=== PATIENT | female | born 1980 | race Hispanic/Latino ===

== ENCOUNTER 2017-12-04 09:39 | Emergency (ER) | payer OTHER, SELFPAY ==
[2017-12-04] MEDS ORDERED: ONDANSETRON 4 MG (ODT) TAB ONE (11:01)
--- NOTE | 2017-12-04 11:54 | EDPHYS ---
Physician Documentation [facility] Name: Jeanie Mancia Age: 37 yrs Sex: Female : 1980 Arrival Date: 12/04/2017 Time: 09:42 Bed 27 Private MD: None, None ED Physician Steffen Wilson HPI: 12/04 11:51 This 37 yrs old Female presents to ER via Ambulatory with complaints of gs Vomiting. 11:51 The patient presents to the emergency department with nausea, vomiting. The patient gs presents to the emergency department with vomiting, 2 times since the onset of symptoms. Onset: The symptoms/episode began/occurred today. Possible causes: unknown. The symptoms are aggravated by nothing. The symptoms are alleviated by nothing. Associated signs and symptoms: Pertinent negatives: abdominal pain, fever, GI bleeding. Severity of symptoms: At their worst the symptoms were moderate in the emergency department the symptoms have improved markedly. The patient has experienced similar episodes in the past, a few times. The patient has not recently seen a physician. 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 - Social history:: Smoking status: Patient/guardian denies using tobacco. - Ebola Screening: : No symptoms or risks identified at this time. ROS: 11:51 All other systems are negative. gs Exam: 11:51 Head/Face: Normocephalic, atraumatic. Eyes: Pupils equal round and reactive to light, gs extra-ocular motions intact. Lids and lashes normal. Conjunctiva and sclera are non-icteric and not injected. Cornea within normal limits. Periorbital areas with no swelling, redness, or edema. ENT: Nares patent. No nasal discharge, no septal abnormalities noted. Tympanic membranes are normal and external auditory canals are clear. Oropharynx with no redness, swelling, or masses, exudates, or evidence of obstruction, uvula midline. Mucous membranes moist. Neck: Trachea midline, no thyromegaly or masses palpated, and no cervical lymphadenopathy. Supple, full range of motion without nuchal rigidity, or vertebral point tenderness. No Meningismus. Chest/axilla: Normal chest wall appearance and motion. Nontender with no deformity. No lesions are appreciated. Cardiovascular: Regular rate and rhythm with a normal S1 and S2. No gallops, murmurs, or rubs. Normal PMI, no JVD. No pulse deficits. Respiratory: Lungs have equal breath sounds bilaterally, clear to auscultation and percussion. No rales, rhonchi or wheezes noted. No increased work of breathing, no retractions or nasal flaring. Abdomen/GI: Soft, non-tender, with normal bowel sounds. No distension or tympany. No guarding or rebound. No evidence of tenderness throughout. Back: No spinal tenderness. No costovertebral tenderness. Full range of motion. Skin: Warm, dry with normal turgor. Normal color with no rashes, no lesions, and no evidence of cellulitis. MS/ Extremity: Pulses equal, no cyanosis. Neurovascular intact. Full, normal range of motion. Neuro: Awake and alert, GCS 15, oriented to person, place, time, and situation. Cranial nerves II-XII grossly intact. Motor strength 5/5 in all extremities. Sensory grossly intact. Cerebellar exam normal. Normal gait. 11:51 Constitutional: The patient appears alert, awake. Vital Signs: 09:54 BP 136 / 73; Pulse 100; Resp 16 S; Temp 97.0(TE); Pulse Ox 99% on R/A; Weight 89.36 kg aa5 (R); Height 5 ft. 5 in. (165.10 cm) (R); Pain 0/10; 11:41 BP 135 / 67; Pulse 74; Resp 16; Pulse Ox 100% on R/A; aj 09:54 Body Mass Index 32.78 (89.36 kg, 165.10 cm) aa5 MDM: 10:28 Patient medically screened. 11:51 Differential diagnosis: Nonspecific abd pain, gastritis, gastroenteritis. Data reviewed: vital signs, nurses notes. Response to treatment: the patient's symptoms have markedly improved after treatment, patient is well hydrated. taking po no emesis. 12/04 11:53 Order name: Urine Dipstick--Ancillary (enter results) bd 12/04 10:29 Order name: Urine Test (obtain specimen); Complete Time: 11:01 12/04 11:53 Order name: Urine --Ancillary (enter results) bd 12/04 11:54 Order name: Urine --Ancillary EDMA 12/04 10:29 Order name: Urine Dipstick-Ancillary (obtain specimen); Complete Time: 11:01 Administered Medications: 11:01 Drug: Zofran 4 mg Route: PO; aj Point of Care Testing: Blood Glucose: 09:54 Blood Glucose: 149 mg/dL; aa5 Ranges: Critical Glucose Levels:Adult <50 mg/dl or >400 mg/dl <40 mg/dl or >180 mg/dl Disposition: 12/04/17 11:54 Discharged to Home. Impression: Vomiting. - Condition is Stable. - Discharge Instructions: Nausea and Vomiting. - Prescriptions for Zofran 4 mg Oral Tablet - take 1 tablet by ORAL route every 12 hours As needed; 6 tablet. Pepcid 20 mg Oral Tablet - take 1 tablet by ORAL route once daily; 20 tablet. - Medication Reconciliation Form, Thank You Letter, Antibiotic Education, Prescription Opioid Use form. - Follow up: Private Physician; When: 2 - 3 days; Reason: Re-evaluation by your physician. Signatures: Dispatcher [employer] EDMA Anjali Samuel RN RN Stephanie Bell RN RN aa5 Steffen Wilson MD MD gs Corrections: (The following items were deleted from the chart) 12:16 11:54 12/04/2017 11:54 Discharged to Home. Impression: Vomiting. Condition is Stable. aj Forms are Medication Reconciliation Form, Thank You Letter, Antibiotic Education, Prescription Opioid Use. Follow up: Private Physician; When: 2 - 3 days; Reason: Re-evaluation by your physician.
--- NOTE | 2017-12-04 11:54 | ER ---
Nurse's Notes [facility] Name: Jeanie Mancia Age: 37 yrs Sex: Female : 1980 Arrival Date: 12/04/2017 Time: 09:42 Bed 27 Private MD: None, None Diagnosis: Vomiting Presentation: 12/04 09:52 Presenting complaint: Patient states: nausea and vomiting today. Pt also reports aa5 generalized weakness. Pt states "I went to a clinic about a month ago and my white count was high so they gave me a couple of antibiotic shots the last few days because the doctor thinks I have an infection somewhere". Transition of care: patient was not received from another setting of care. Onset of symptoms was December 04, 2017. Risk Assessment: Do you want to hurt yourself or someone else? Patient reports no desire to harm self or others. Initial Sepsis Screen: Does the patient meet any 2 criteria? No. Patient's initial sepsis screen is negative. Does the patient have a suspected source of infection? No. Patient's initial sepsis screen is negative. Care prior to arrival: None. 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 - Social history:: Smoking status: Patient/guardian denies using tobacco. - Ebola Screening: : No symptoms or risks identified at this time. Screenin:14 Abuse screen: Denies threats or abuse. Denies injuries from another. Nutritional aj screening: No deficits noted. Tuberculosis screening: No symptoms or risk factors identified. Fall Risk None identified. Assessment: 10:13 General: Appears in no apparent distress. comfortable, Behavior is calm, cooperative, aj appropriate for age. Pain: Denies pain. Neuro: Level of Consciousness is awake, alert, obeys commands, Oriented to person, place, time, situation, Appropriate for age. Respiratory: Airway is patent Respiratory effort is even, unlabored, Respiratory pattern is regular, symmetrical. GI: Abdomen is obese. GI: Reports nausea, vomiting. Derm: Skin is intact, is healthy with good turgor, Skin is pink, warm \\T\\ dry. normal. 11:43 Reassessment: Patient and/or family updated on plan of care and expected duration. Pain aj level reassessed. Patient is alert, oriented x 3, equal unlabored respirations, skin warm/dry/pink. Patient PO challenged successfully Patient denies pain at this time. Patient states feeling better. Patient states symptoms have improved. Vital Signs: 09:54 BP 136 / 73; Pulse 100; Resp 16 S; Temp 97.0(TE); Pulse Ox 99% on R/A; Weight 89.36 kg aa5 (R); Height 5 ft. 5 in. (165.10 cm) (R); Pain 0/10; 11:41 BP 135 / 67; Pulse 74; Resp 16; Pulse Ox 100% on R/A; aj 09:54 Body Mass Index 32.78 (89.36 kg, 165.10 cm) aa5 ED Course: 09:42 Patient arrived in ED. mr 09:42 None, None is Private Physician. mr 09:54 Triage completed. aa5 09:54 Arm band placed on. aa5 09:56 Anjali Samuel, NANY is Primary Nurse. aj 10:08 Steffen Wilson MD is Attending Physician. gs 10:14 Patient has correct armband on for positive identification. aj 12:13 No provider procedures requiring assistance completed. Patient did not have IV access aj during this emergency room visit. Administered Medications: 11:01 Drug: Zofran 4 mg Route: PO; aj Point of Care Testing: Blood Glucose: 09:54 Blood Glucose: 149 mg/dL; aa5 Ranges: Outcome: 11:54 Discharge ordered by . gs 12:13 Discharged to home ambulatory, with family. aj 12:13 Condition: good 12:13 Discharge instructions given to patient, family, Instructed on discharge instructions, follow up and referral plans. medication usage, Demonstrated understanding of instructions, follow-up care, medications, Prescriptions given X 2. 12:16 Patient left the ED. aj Signatures: Anjali Samuel, Guera Black RN mr WestStephanie RN RN aa5 Steffen Wilson MD MD
[2017-12-04 12:13] LABS: Urine Blood NEGATIVE (NEG); Urine Glucose NEGATIVE (NEG); Urine Protein 1+ (NEG); Urine Specific Gravity 1.015 (1.005-1.030)
== END 2017-12-04 12:16 | disposition home or self-care (01) ==
LOC: ER 09:39
DX: R11.10 Vomiting, unspecified (principal); I10 Essential (primary) hypertension
CPT/HCPCS: 81003; 81025; 82962; 99283

== ENCOUNTER 2018-04-28 05:22 | Emergency (ER) | payer SELFPAY ==
[2018-04-28 06:10] LABS: Urine Appearance CLEAR; Urine Bilirubin NEGATIVE (NEG); Urine Blood NEGATIVE (NEG); Urine Color YELLOW; Urine Glucose NEGATIVE (NEG); Urine Protein NEGATIVE (NEG); Urine Urobilinogen 0.2 mg/dL (0.2-1.0); Urine pH 6.5 (5.0-7.0)
[2018-04-28 06:12] LABS: Urine Microscopic Reflex NO UMIC
[2018-04-28 06:23] LABS: Urine Blood NEGATIVE (NEG); Urine Glucose NEGATIVE (NEG); Urine Protein NEGATIVE (NEG); Urine Specific Gravity 1.015 (1.005-1.030)
[2018-04-28 06:27] LABS: Absolute Lymphocytes (CBC) 2.5 K/uL (0.7-4.9); Absolute Monocytes 0.8 K/uL (0.1-1.3); Absolute Neutrophil 7.8 K/uL (1.8-8.0); Basophils % 0.3 % (0-1.3); Eosinophils % 1.5 % (0-4.4); Hematocrit 36.7 % (36.0-45.0); Lymphocytes % 22.4 % (15.3-44.8); MCH 29.3 pg (27.0-35.0); MCV 87.1 fL (80-100); MPV 7.9 fL (7.6-11.3); Monocytes % 6.7 % (3.3-12.3); RBC Red Blood Cell Count 4.22 M/uL (3.86-4.86)
[2018-04-28 06:28] LABS: Bilirubin Total 0.4 mg/dL (0.2-1.0); Potassium 4.1 mmol/L (3.5-5.1)
[2018-04-28 06:29] LABS: Albumin 3.7 g/dL (3.4-5.0); Bilirubin Direct 0.1 mg/dL (0-0.2)
--- NOTE | 2018-04-28 07:59 | ER ---
Nurse's Notes [facility] Name: Jeanie Mancia Age: 37 yrs Sex: Female : 1980 Arrival Date: 04/28/2018 Time: 05:26 Bed 16 Private MD: Diagnosis: Upper abdominal pain, unspecified Presentation: 04/28 05:35 Presenting complaint: Patient states: Abdominal pain that radiates to the back. Patient ao is negative for nausea and/or vomiting. Transition of care: patient was not received from another setting of care. Onset of symptoms was April 25, 2018. Risk Assessment: Do you want to hurt yourself or someone else? Patient reports no desire to harm self or others. Initial Sepsis Screen: Does the patient meet any 2 criteria? No. Patient's initial sepsis screen is negative. Does the patient have a suspected source of infection? No. Patient's initial sepsis screen is negative. Care prior to arrival: None. 05:35 Method Of Arrival: Ambulatory ao 05:35 Acuity: PRESTON 3 ao [employer]BER: 05:38 LMP 04/20/2018 ao Historical: - Allergies: 05:38 Lisinopril; ao - Home Meds: 05:38 losartan 25 mg oral tab 1 tab once daily [Active]; metformin 1,000 mg Oral tr24 1 tab ao once daily [Active]; - PMHx: 05:38 Diabetes - NIDDM; Hypertension; ao - PSHx: 05:38 Left ovary; ovarian cyst; ao - Immunization history:: Adult Immunizations up to date. - Social history:: Smoking status: Patient/guardian denies using tobacco, Patient/guardian denies using alcohol, street drugs. - Ebola Screening: : Patient negative for fever greater than or equal to 101.5 degrees Fahrenheit, and additional compatible Ebola Virus Disease symptoms Patient denies exposure to infectious person Patient denies travel to an Ebola-affected area in the 21 days before illness onset. Screenin:42 Abuse screen: Denies threats or abuse. Denies injuries from another. Nutritional ao screening: No deficits noted. Tuberculosis screening: No symptoms or risk factors identified. Fall Risk None identified. Assessment: 05:40 General: Appears in no apparent distress. comfortable, Behavior is calm, cooperative, ao appropriate for age. Pain: Complains of pain in abdomen Pain radiates to back Pain currently is 6 out of 10 on a pain scale. Neuro: Level of Consciousness is awake, alert, obeys commands, Oriented to person, place, time, situation, Appropriate for age Moves all extremities. Full function Speech is normal, Facial symmetry appears normal. Cardiovascular: Denies chest pain, nausea, shortness of breath, vomiting, Heart tones S1 S2. Respiratory: Airway is patent Respiratory effort is even, unlabored, Respiratory pattern is regular, symmetrical. GI: Bowel sounds present X 4 quads. Reports lower abdominal pain. : No signs and/or symptoms were reported regarding the genitourinary system. EENT: No signs and/or symptoms were reported regarding the EENT system. Derm: Skin is intact, Skin is pink, warm \T\ dry. normal, Skin temperature is warm. Musculoskeletal: Circulation, motion, and sensation intact. Range of motion: intact in all extremities. 07:09 Reassessment: Patient appears in no apparent distress at this time. Patient and/or em family updated on plan of care and expected duration. Pain level reassessed. Patient is alert, oriented x 3, equal unlabored respirations, skin warm/dry/pink. pending US Patient denies pain at this time. 07:40 Reassessment: Patient appears in no apparent distress at this time. Patient and/or em family updated on plan of care and expected duration. Pain level reassessed. Patient is alert, oriented x 3, equal unlabored respirations, skin warm/dry/pink. US at bedside. 08:00 Reassessment: Patient appears in no apparent distress at this time. Patient and/or em family updated on plan of care and expected duration. Pain level reassessed. Patient is alert, oriented x 3, equal unlabored respirations, skin warm/dry/pink. provider at bedside discussing POC. Vital Signs: 05:38 BP 155 / 85; Pulse 83; Resp 16; Temp 98.1(O); Pulse Ox 100% on R/A; Weight 92.99 kg; ao Height 5 ft. 5 in. (165.10 cm) (R); Pain 6/10; 07:09 BP 121 / 90; Pulse 78; Resp 18; Pulse Ox 99% on R/A; Pain 0/10; em 08:14 BP 123 / 73; Pulse 79; Resp 16; Pulse Ox 99% on R/A; Pain 0/10; em 05:38 Body Mass Index 34.11 (92.99 kg, 165.10 cm) ao ED Course: 05:26 Patient arrived in ED. ag3 05:35 Ernst Stein, RN is Primary Nurse. ao 05:36 Triage completed. ao 05:40 Arm band placed on right wrist. Patient placed in an exam room, on a stretcher, on ao pulse oximetry, Patient notified of wait time. 05:42 Patient has correct armband on for positive identification. Pulse ox on. NIBP on. ao 05:55 Inserted saline lock: 20 gauge in left antecubital area, using aseptic technique. Blood cc3 collected. 06:07 Diaz Colón PA is PHCP. jr8 06:07 Kaiser Reed MD is Attending Physician. jr8 07:00 Report given to DEEPALI Live. ao 07:49 Ultrasound completed. Patient tolerated well. sg3 07:50 US Abdomen Limited In Process Unspecified. EDMS 07:58 Anna Armijo MD is Referral Physician. jr8 08:11 No provider procedures requiring assistance completed. IV discontinued, intact, em bleeding controlled, No redness/swelling at site. Pressure dressing applied. Administered Medications: No medications were administered Outcome: 07:58 Discharge ordered by . jr8 08:11 Discharged to home ambulatory, with family. em 08:11 Condition: good 08:11 Discharge instructions given to patient, Instructed on discharge instructions, follow up and referral plans. Demonstrated understanding of instructions, follow-up care. 08:15 Patient left the ED. em Signatures: Dispatcher [employer] Calos Emmanuel LVN LVN em Diaz Colón PA PA jr8 Ernst Stein, RN RN Loretta Maddox sg3 Ashley Chavez cc3 Lian Jimenez ag3
--- NOTE | 2018-04-28 07:59 | EDPHYS ---
Physician Documentation [facility] Name: Jeanie Mancia Age: 37 yrs Sex: Female : 1980 Arrival Date: 04/28/2018 Time: 05:26 Bed 16 Private MD: ED Physician Kaiser Reed HPI: 04/28 07:01 This 37 yrs old Female presents to ER via Ambulatory with complaints of Back jr8 Pain, Abdominal Pain. 07:01 The patient presents with abdominal pain in the upper abdomen. Onset: The jr8 symptoms/episode began/occurred gradually, 4 day(s) ago, and became worse today, and became persistent today. The symptoms radiate to back. Associated signs and symptoms: none. The symptoms are described as stabbing. Modifying factors: The symptoms are alleviated by nothing, the symptoms are aggravated by food. Severity of pain: At its worst the pain was moderate in the emergency department the pain has resolved. The patient has not experienced similar symptoms in the past. The patient has not recently seen a physician. 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 - Social history:: Smoking status: Patient/guardian denies using tobacco, Patient/guardian denies using alcohol, street drugs. - Ebola Screening: : Patient negative for fever greater than or equal to 101.5 degrees Fahrenheit, and additional compatible Ebola Virus Disease symptoms Patient denies exposure to infectious person Patient denies travel to an Ebola-affected area in the 21 days before illness onset. ROS: 07:01 Constitutional: Negative for fever, chills, and weight loss. jr8 07:01 Abdomen/GI: Positive for abdominal pain, Negative for nausea, vomiting, diarrhea, constipation, abdominal cramps, abdominal distension, hematemesis, black/tarry stool, rectal pain, rectal bleeding, bowel incontinence, flatulence. 07:01 All other systems are negative. Exam: 07:01 ENT: Nares patent. No nasal discharge, no septal abnormalities noted. Tympanic jr8 membranes are normal and external auditory canals are clear. Oropharynx with no redness, swelling, or masses, exudates, or evidence of obstruction, uvula midline. Mucous membranes moist. Cardiovascular: Regular rate and rhythm with a normal S1 and S2. No gallops, murmurs, or rubs. Normal PMI, no JVD. No pulse deficits. Respiratory: Lungs have equal breath sounds bilaterally, clear to auscultation and percussion. No rales, rhonchi or wheezes noted. No increased work of breathing, no retractions or nasal flaring. Back: No spinal tenderness. No costovertebral tenderness. Full range of motion. Skin: Warm, dry with normal turgor. Normal color with no rashes, no lesions, and no evidence of cellulitis. MS/ Extremity: Pulses equal, no cyanosis. Neurovascular intact. Full, normal range of motion. Neuro: Awake and alert, GCS 15, oriented to person, place, time, and situation. Cranial nerves II-XII grossly intact. Motor strength 5/5 in all extremities. Sensory grossly intact. Cerebellar exam normal. Normal gait. 07:01 Abdomen/GI: Inspection: abdomen appears normal, Bowel sounds: active, all quadrants, Palpation: soft, in all quadrants, mild abdominal tenderness, in the right upper quadrant, mass, is not appreciated, rebound tenderness, is not appreciated, voluntary guarding, is not appreciated, involuntary guarding, is not appreciated, no appreciated organomegaly, Indicators: McBurney's point is not tender, Vazquez's sign is negative, Rovsing's sign is negative, Liver: no appreciated palpable abnormalities, tenderness, is not appreciated. Vital Signs: 05:38 BP 155 / 85; Pulse 83; Resp 16; Temp 98.1(O); Pulse Ox 100% on R/A; Weight 92.99 kg; ao Height 5 ft. 5 in. (165.10 cm) (R); Pain 6/10; 07:09 BP 121 / 90; Pulse 78; Resp 18; Pulse Ox 99% on R/A; Pain 0/10; em 08:14 BP 123 / 73; Pulse 79; Resp 16; Pulse Ox 99% on R/A; Pain 0/10; em 05:38 Body Mass Index 34.11 (92.99 kg, 165.10 cm) ao MDM: 06:07 Patient medically screened. jr8 07:57 Differential diagnosis: bowel obstruction, cholecystitis, Cholelithiasis, jr8 diverticulitis, gastritis, gastroesophageal reflux disease, Hepatitis, Irritable bowel syndrome, non-specific abd pain, pancreatitis, Peptic Ulcer Disease, Pyelonephritis, Ureterolithiasis. Data reviewed: vital signs, nurses notes, lab test result(s), radiologic studies, ultrasound. Data interpreted: Pulse oximetry: on room air is 99 %. Interpretation: normal. Counseling: I had a detailed discussion with the patient and/or guardian regarding: the historical points, exam findings, and any diagnostic results supporting the discharge/admit diagnosis, lab results, radiology results, the need for outpatient follow up, a external grinder, to return to the emergency department if symptoms worsen or persist or if there are any questions or concerns that arise at home. 04/28 05:40 Order name: Basic Metabolic Panel; Complete Time: 06:49 04/28 05:40 Order name: CBC with Diff; Complete Time: 06:49 04/28 05:40 Order name: Creatinine for Radiology; Complete Time: 06:49 04/28 05:40 Order name: Hepatic Function; Complete Time: 06:49 04/28 05:40 Order name: Lipase; Complete Time: 06:49 04/28 05:40 Order name: Urinalysis; Complete Time: 06:24 04/28 05:40 Order name: IV Saline Lock; Complete Time: 06:03 04/28 05:40 Order name: Labs collected and sent; Complete Time: 06:03 04/28 05:40 Order name: Urine Test (obtain specimen); Complete Time: 06:04 04/28 06:06 Order name: Urine Dipstick--Ancillary (enter results); Complete Time: 06:24 04/28 06:06 Order name: Urine --Ancillary (enter results); Complete Time: 06:24 04/28 06:12 Order name: US Abdomen Limited jr8 Administered Medications: No medications were administered Disposition: 04/29 06:44 Co-signature as Attending Physician, Kaiser Reed MD I agree with the assessment and plan of care. Disposition: 04/28/18 07:58 Discharged to Home. Impression: Upper abdominal pain, unspecified. - Condition is Stable. - Discharge Instructions: Abdominal Pain, Adult. - Medication Reconciliation Form, Thank You Letter, Antibiotic Education, Prescription Opioid Use form. - Follow up: Anna Armijo MD; When: 2 - 3 days; Reason: Recheck today's complaints, Continuance of care, Re-evaluation by your physician. - Problem is new. - Symptoms have improved. Signatures: Dispatcher [employer] EDMS Calos Gonzalez, ASSISTANT FAMILY TEACHER ASSISTANT FAMILY TEACHER em Diaz Colón PA PA jr8 Ernst Stein, RN RN Kaiser Arreguin MD MD tw4 Corrections: (The following items were deleted from the chart) 04/28 08:15 07:58 04/28/2018 07:58 Discharged to Home. Impression: Upper abdominal pain, em unspecified. Condition is Stable. Forms are Medication Reconciliation Form, Thank You Letter, Antibiotic Education, Prescription Opioid Use. Follow up: Anna Armijo; When: 2 - 3 days; Reason: Recheck today's complaints, Continuance of care, Re-evaluation by your physician. Problem is new. Symptoms have improved. jr8
--- NOTE | 2018-04-28 09:00 | RAD REPORT ---
EXAM DESCRIPTION: US - Abdomen Exam Limited - 04/28/2018 7:51 am CLINICAL HISTORY: Abdominal pain. COMPARISON: None. FINDINGS: The gallbladder wall is not thickened. A gallstone is not seen. The biliary tree is normal caliber. IMPRESSION: Unremarkable gallbladder ultrasound.
== END 2018-04-28 08:15 | disposition home or self-care (01) ==
LOC: ER 05:22
DX: R10.10 Upper abdominal pain, unspecified (principal); I10 Essential (primary) hypertension; E11.9 Type 2 diabetes mellitus without complications; Z88.8 Allergy status to other drugs, medicaments and biological substances
CPT/HCPCS: 36415; 76705; 80048; 80076; 81003; 81025; 82962; 83690; 85025; 99284

== ENCOUNTER 2023-01-16 11:34 | Emergency (ER) | payer OTHER ==
[2023-01-16 12:18] LABS: Absolute Lymphocytes (CBC) 2.2 K/uL (0.7-4.9); Hematocrit 35.7 % (36.0-45.0); MCV 84.8 fL (80-100); MPV 7.7 fL (7.6-11.3); RBC Red Blood Cell Count 4.21 M/uL (3.86-4.86)
[2023-01-16 12:33] LABS: Potassium 3.5 mEq/L (3.5-5.1)
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
--- NOTE | 2023-01-16 13:04 | RAD REPORT ---
EXAM DESCRIPTION: RAD - Shoulder Left 2 View - 01/16/2023 12:56 pm CLINICAL HISTORY: PAIN COMPARISON: <Comparisons> FINDINGS: No fracture or dislocation seen.
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
[2023-01-16 14:22] VITALS: TEMP 98
[2023-01-16 14:27] VITALS: BP 131/75; O2SAT 98
== END 2023-01-16 13:36 | disposition home or self-care (01) ==
LOC: ER 11:34
DX: S43.492A Other sprain of left shoulder joint, initial encounter (principal); S29.012A Strain of muscle and tendon of back wall of thorax, initial encounter; V49.49XA Driver injured in collision with other motor vehicles in traffic accident, initial encounter; E11.9 Type 2 diabetes mellitus without complications; I10 Essential (primary) hypertension; Z88.8 Allergy status to other drugs, medicaments and biological substances
CPT/HCPCS: 85025; 80048; 36415; 70450; 72125; 71260; 74177; 73090; 73030; Q9967

== ENCOUNTER → 2023-09-16 | Emergency (ER) | payer SELFPAY ==
[~2023-09-16] MED LIST: LABETALOL 20 MG/4ML SYRINGE IV ONE; MORPHINE 4 MG/ML SYR ONE; ONDANSETRON 4 MG/2 ML VIAL ONE
--- NOTE | 2023-09-16 16:07 | RAD REPORT ---
EXAM DESCRIPTION: CT - Head Brain Wo Cont - 09/16/2023 3:47 pm CLINICAL HISTORY: PAIN COMPARISON: No comparisons TECHNIQUE: Noncontrast head CT images were obtained without IV contrast. Multiplanar reformats were generated and reviewed. All CT scans are performed using dose optimization technique as appropriate and may include automated exposure control or mA/KV adjustment according to patient size. FINDINGS: No intracranial hemorrhage, mass, or edema. Midline structures are unremarkable. Normal ventricular caliber for age. Ortiz-white matter differentiation is preserved, without evidence of acute infarct. No abnormal extra- axial fluid collections. Mastoid air cells and visualized portions of the paranasal sinuses are clear. No acute bony findings. IMPRESSION: No evidence of an acute intracranial process.
--- NOTE | 2023-09-16 16:57 | EDPHYS ---
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 - Social history:: Smoking status: Patient denies any tobacco usage or history of. Vital Signs: 15:28 BP 181 / 102; Pulse 100; Resp 16; Temp 98.4(O); Pulse Ox 100% on R/A; Weight 92.99 kg; hb Height 5 ft. 3 in. ; Pain 10/10; 16:11 BP 149 / 79; Pulse 108; Resp 18 S; Pulse Ox 98% on R/A; aa5 16:52 BP 144 / 75; Pulse 95; Resp 16 S; Pulse Ox 99% on R/A; aa5 17:50 BP 150 / 78; Pulse 83; Resp 18 S; Pulse Ox 97% on R/A; aa5 15:28 Body Mass Index 36.31 (92.99 kg, 160.02 cm) hb 15:28 Pain Scale: Adult hb MDM: 15:28 Patient medically screened. cp3 09/15 15:37 Order name: CT Head Brain wo Cont; Complete Time: 16:31 cp3 09/15 15:37 Order name: Saline Lock; Complete Time: 16:03 cp3 Administered Medications: 15:52 Drug: Ondansetron IVP 4 mg IVP once; over 2 minutes Route: IVP; Site: left antecubital; aa5 16:11 Follow up: Response: No adverse reaction aa5 15:54 Drug: morphine IVP or IV 4 mg IVP once over 4 mins Route: IVP; Infused Over: 4 mins; aa5 Site: left antecubital; 16:11 Follow up: Response: No adverse reaction aa5 16:51 Not Given (Physician Discretion): [id number] mg IV at bolus once aa5 Disposition Summary: 09/16/23 16:56 Discharge Ordered Notes: Location: Home cp3 Condition: Stable cp3 Diagnosis - headache cp3 Discharge Instructions: - Discharge Summary Sheet cp3 Forms: - Medication Reconciliation Form cp3 - Thank You Letter cp3 - Antibiotic Education cp3 - Prescription Opioid Use cp3 - Patient Portal Instructions cp3 - Leadership Thank You Letter cp3 Prescriptions: - ketorolac 10 mg Oral tablet - take 1 tablet ORAL route 3 times per day for 3 days; 12 tablet; Refills: 0, cp3 Product Selection Permitted Signatures: Dispatcher [employer] Refugio Hicks MD MD cp3 Stephanie West RN RN aa5 Tanisha Zepeda RN RN hb Corrections: (The following items were deleted from the chart) 15:32 15:30 PSHx: None; hb hb
--- NOTE | 2023-09-16 16:57 | ER ---
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 Pain started after hb getting upset/angry. Coronavirus screen: At this time, the client does not indicate any symptoms associated with coronavirus-19. Ebola Screen: No symptoms or risks identified at this time. Initial Sepsis Screen: Does the patient meet any 2 criteria? No. Patient's initial sepsis screen is negative. Does the patient have a suspected source of infection? No. Patient's initial sepsis screen is negative. Risk Assessment: Do you want to hurt yourself or someone else? Patient reports no desire to harm self or others. Onset of symptoms was September 16, 2023. 15:28 Method Of Arrival: Ambulatory hb 15:28 Acuity: PRESTON 3 hb Triage Assessment: 15:30 Headache History: Denies prior headaches. General: Appears in no apparent distress. hb Behavior is calm, cooperative. Pain: Pain currently is 10 out of 10 on a pain scale. Neuro: Level of Consciousness is awake, alert, obeys commands, Oriented to person, place, time, situation, Reports headache. Cardiovascular: Patient's skin is warm and dry. Respiratory: Respiratory effort is even, unlabored, Respiratory pattern is regular, symmetrical. 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 - Social history:: Smoking status: Patient denies any tobacco usage or history of. Screenin:50 [facility] ED Fall Risk Assessment (Adult) History of falling in the last 3 months, aa5 including since admission No falls in past 3 months (0 pts) Confusion or Disorientation No (0 pts) Intoxicated or Sedated No (0 pts) Impaired Gait No (0 pts) Mobility Assist Device Used No (0 pt) Altered Elimination No (0 pt) Score/Fall Risk Level 0 - 2 = Low Risk Oriented to surroundings, Maintained a safe environment, Educated pt \\T\\ family on fall prevention, incl call for assistance when getting out of bed. Abuse screen: Denies threats or abuse. Nutritional screening: No deficits noted. Tuberculosis screening: No symptoms or risk factors identified. Assessment: 15:50 General: Appears uncomfortable, Behavior is calm, cooperative. Pain: Complains of pain aa5 in top of head Pain currently is 9 out of 10 on a pain scale. Quality of pain is described as aching, throbbing, Pain began "after getting upset today" Is continuous. Neuro: Level of Consciousness is awake, alert, obeys commands, Oriented to person, place, time, situation, Help Desk Specialist are equal bilaterally Moves all extremities. Speech is normal, Facial symmetry appears normal, Reports dizziness, headache. Cardiovascular: Heart tones S1 S2 present Rhythm is regular. Respiratory: Airway is patent Respiratory effort is even, unlabored, Respiratory pattern is regular, symmetrical. GI: Abdomen is round non-distended, Bowel sounds present X 4 quads. Abd is soft and non tender X 4 quads. Reports nausea, Patient currently denies vomiting. : No signs and/or symptoms were reported regarding the genitourinary system. EENT: No signs and/or symptoms were reported regarding the EENT system. Derm: Skin is pink, warm \\T\\ dry. Musculoskeletal: Range of motion: intact in all extremities. 16:12 Reassessment: Dr. Peraza notified of improved BP reading, currently 149/79, labetalol aa5 on hold per . . 16:12 Reassessment: Patient is alert, oriented x 3, equal unlabored respirations, skin aa5 warm/dry/pink. Patient states feeling better. 16:52 Reassessment: Patient is alert, oriented x 3, equal unlabored respirations, skin aa5 warm/dry/pink. Patient states feeling better. Patient states symptoms have improved. 17:50 Reassessment: Patient is alert, oriented x 3, equal unlabored respirations, skin aa5 warm/dry/pink. Vital Signs: 15:28 BP 181 / 102; Pulse 100; Resp 16; Temp 98.4(O); Pulse Ox 100% on R/A; Weight 92.99 kg; hb Height 5 ft. 3 in. ; Pain 10/10; 16:11 BP 149 / 79; Pulse 108; Resp 18 S; Pulse Ox 98% on R/A; aa5 16:52 BP 144 / 75; Pulse 95; Resp 16 S; Pulse Ox 99% on R/A; aa5 17:50 BP 150 / 78; Pulse 83; Resp 18 S; Pulse Ox 97% on R/A; aa5 15:28 Body Mass Index 36.31 (92.99 kg, 160.02 cm) hb 15:28 Pain Scale: Adult hb ED Course: 15:07 Patient arrived in ED. im 15:09 Refugio Peraza MD is Attending Physician. cp3 15:30 Triage completed. hb 15:30 Arm band placed on. hb 15:49 CT Head Brain wo Cont In Process Unspecified. EDMS 15:50 Patient has correct armband on for positive identification. aa5 15:50 Inserted saline lock: 20 gauge in left antecubital area, using aseptic technique. aa5 16:03 Stephanie West, RN is Primary Nurse. aa5 17:50 No provider procedures requiring assistance completed. IV discontinued, intact, aa5 bleeding controlled, No redness/swelling at site. Pressure dressing applied. Administered Medications: 15:52 Drug: Ondansetron IVP 4 mg IVP once; over 2 minutes Route: IVP; Site: left antecubital; aa5 16:11 Follow up: Response: No adverse reaction aa5 15:54 Drug: morphine IVP or IV 4 mg IVP once over 4 mins Route: IVP; Infused Over: 4 mins; aa5 Site: left antecubital; 16:11 Follow up: Response: No adverse reaction aa5 16:51 Not Given (Physician Discretion): [id number] mg IV at bolus once aa5 Medication: 16:21 VIS not applicable for this client. aa5 Outcome: 16:56 Discharge ordered by . cp3 17:50 Discharged to home via wheelchair, with family, aa5 17:50 Condition: improved 17:50 Discharge instructions given to patient, Instructed on discharge instructions, follow up and referral plans. medication usage, Demonstrated understanding of instructions, follow-up care, medications, Prescriptions given X 1, 17:53 Patient left the ED. aa5 Signatures: Dispatcher [employer] Refugio Hicks MD MD cp3 Stephanie West RN RN aa5 Tanisha Zepeda RN RN hb Ally [place] Corrections: (The following items were deleted from the chart) 15:32 15:30 PSHx: None; [facility]
[2023-09-16 18:07] VITALS: BP 144/75; TEMP 98.4; O2SAT 99
== END ==
LOC: ER 15:06
DX: R51.9 Headache, unspecified (principal); I10 Essential (primary) hypertension; E11.9 Type 2 diabetes mellitus without complications; Z88.8 Allergy status to other drugs, medicaments and biological substances
CPT/HCPCS: 70450; 96374; 96375; 99284; J2405